=== PATIENT | female | born 1975 | race African-American/Black ===

== ENCOUNTER 2017-01-06 15:27 | Emergency (ER) | payer OTHER ==
[2017-01-06 15:36] VITALS: BP 154/90; PULSE 87; TEMP 99.2; BMI 45.1
[2017-01-06] MEDS ORDERED: KETOROLAC TROMETHAMINE 30 MG/1 ML VIAL IM ONE (17:17)
--- NOTE | 2017-01-06 17:26 | PDOC ---
History of Present Illness - General Chief Complaint: Pain, Acute Stated Complaint: RT KNEE PAIN Time Seen by Provider: 01/06/17 16:42 History Source: Patient - History of Present Illness Initial Comments: 01/06/17 17:26 This is a 41 yo woman with PMH HTN and asthma who presents today with 3 weeks of right knee pain and swelling. 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 She felt a "pop" at that time. She delayed seeking out care thinking the swelling and pain would resolve spontaneously. The pain has not resolved and swelling only minimally improved per patient. She denies any instability, fevers, worsening pain or paresthesias distal to swelling. Occurred: reports: other ("3 weeks ago" unsure of date) Severity: Yes: mild Lower Extremity Pain Location: right: knee Method of Injury: Yes: other (slip followed by sudden stop) Modifying Factors: improves with: None Lower Ext. Injury Location - Specific Injury Location Hips: bilateral hip: no evidence of injury Knees: right normal range of motion (decreased flexion and extension ), right deformity (none), right swelling, right pain (8/10), left no evidence of injury Ankle: bilateral no evidence of injury Foot: bilateral foot no evidence of injury Extremity Pain Location - Extremity Pain Location Extremity Pain Locations: right: knee Past History - Travel Traveled outside of the country in the last 30 days: No Close contact w/someone who was outside of country & ill: No - Past Medical History Allergies/Adverse Reactions: Allergies Allergy/AdvReac Type Severity Reaction Status Date / Time Penicillins Allergy Verified 01/06/17 15:37 Home Medications: Ambulatory Orders Unobtainable [Unobtainable] 01/06/17 Asthma: Yes HTN: Yes - Surgical History Abdominal Surgery: (hernia repair) - Psycho/Social/Smoking Cessation Hx Suicidal Ideation: No Smoking History: Current every day smoker Number of Cigarettes Smoked Daily: 4 Information on smoking cessation initiated: No Hx Alcohol Use: No Drug/Substance Use Hx: No Review of Systems - Review of Systems Able to Perform ROS?: Yes Is the patient limited Italian proficient: No Constitutional: No: Symptoms Reported HEENTM: No: Symptoms Reported Respiratory: No: Symptoms reported Cardiac (ROS): No: Symptoms Reported ABD/GI: No: Symptoms Reported : No: Symptoms Reported Musculoskeletal: Yes: Joint Pain (right knee) Integumentary: No: Symptoms Reported Neurological: No: Symptoms reported *Physical Exam - Vital Signs Last Vital Signs Temp Pulse Resp BP Pulse Ox 99.2 F 87 18 154/90 98 01/06/17 15:33 01/06/17 15:33 01/06/17 15:33 01/06/17 15:33 01/06/17 15:33 - Physical Exam General Appearance: Yes: Appropriately Dressed. No: Apparent Distress HEENT: positive: EOMI, SAMIRA, Normal ENT Inspection Neck: positive: Trachea midline, Supple. negative: Tender Respiratory/Chest: positive: Lungs Clear, Normal Breath Sounds. negative: Respiratory Distress, Accessory Muscle Use Cardiovascular: positive: Regular Rhythm, Regular Rate, S1, S2. negative: Edema , JVD, Murmur Gastrointestinal/Abdominal: positive: Normal Bowel Sounds, Soft. negative: Tender, Organomegaly Musculoskeletal: positive: Normal Inspection. negative: CVA Tenderness Extremity: positive: Swelling (right knee. decreased ROM on both flexion and extension. -warmth. ). negative: Calf Tenderness, Erythema Integumentary: positive: Normal Color, Dry, Warm Neurologic: positive: brand lead II-XII NML intact, Fully Oriented, Alert, Motor Strength 5/ ED Treatment Course - RADIOLOGY Radiology Studies Ordered: Category Date Time Status KNEE 2 POS-RIGHT [RAD] Stat Radiology 01/06/17 17:16 Ordered Medical Decision Making - Medical Decision Making 01/06/17 17:31 A/P: This is a 41 yo woman with PMH HTN and asthma who presents today with 3 weeks of right knee pain and swelling. 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 She felt a "pop" at that time. She delayed seeking out care thinking the swelling and pain would resolve spontaneously. The pain has not resolved and swelling only minimally improved per patient. She denies any instability, fevers, worsening pain or paresthesias distal to swelling. PROM decreased on flexion and extension. No erythema or warmth feeling to joint. DDx: soft tissue injury vs cartilaginous injury vs bony injury - UPT - Toradol 30mg IM now - xrays of right knee 01/06/17 18:17 Wet read of knee films by me: No bony fractures. No misalignment of bony structures. Immobilizer to right knee. referral for Orthopedics ([facility]) discharge Discussed xray results with patient. All questions answered. Patient in agreement with plan to discharge with orthopedic follow up. *DC/Admit/Observation/Transfer Diagnosis at time of Disposition: Right knee pain Qualifiers: Chronicity: acute Qualified Code(s): M25.561 - Pain in right knee - Discharge Dispostion Disposition: HOME Condition at time of disposition: Stable Admit: No - Referrals Referrals: Javier Walls MD [Staff Physician] - - Patient Instructions Additional Instructions: Use ice as needed for pain and to reduce swelling. Elevate knee while sitting or laying down. Wear immobilizer until you see Dr. Walls or other orthopedist. Take Motrin for pain as directed by maintenance shop laborer's instructions. Return to ER for loss of feeling, increased pain, loss of movement of toes or any other concerns.
[2017-01-06] MEDS ORDERED: KETOROLAC TROMETHAMINE 30 MG/1 ML VIAL ONE (17:43)
== END 2017-01-06 19:07 | disposition home or self-care (01) ==
LOC: JERFT 15:27
PROC: 2W3LX1Z Immobilization of Right Lower Extremity using Splint (ICD-10-PCS; principal; 2017-01-06)
DX: M25.561 Pain in right knee (principal); X58.XXXA Exposure to other specified factors, initial encounter; Y93.89 Activity, other specified; Y92.9 Unspecified place or not applicable; Y99.0 Civilian activity done for income or pay; I10 Essential (primary) hypertension; J45.909 Unspecified asthma, uncomplicated
CPT/HCPCS: 73560-TC-RT; 84703; 99281-25